=== PATIENT | male | born 1935 | race Caucasian/White ===

== ENCOUNTER 2019-09-22 05:08 | Day surgery (SDC) ==
--- NOTE | 2019-09-15 08:07 | EKG Report ---
Test Performed on : 09/15/2019 08:00:17 AM Test Reason : PAT Blood Pressure : / mmHG Vent. Rate : 067 BPM Atrial Rate : 067 BPM P-R Int : 202 ms QRS Dur : 086 ms QT Int : 384 ms P-R-T Axes : 075 069 052 degrees QTc Int : 405 ms Normal sinus rhythm. Normal ECG No previous ECGs available Confirmed by Eliezer Yi MD ([id number]) on 09/16/2019 12:22:47 PM
[2019-09-15 09:00] LABS: URINE SOURCE CLEAN CATCH
[2019-09-15 09:13] LABS: BASO# 0.07 X1000 (0.0-0.2); BASO% 1.3 % (0.0-0.8); EOS% 7.5 % (0.0-10.0); HEMATOCRIT 49.6 % (42.0-52.0); HEMOGLOBIN 15.6 g/dL (14.0-18.0); LYMPH# 1.72 X1000 (1.2-3.4); LYMPH% 32.3 % (20.5-51.1); MCHC 31.5 g/dL (33-37); MCV 92.2 FL (81-99); MONO# 0.57 X1000 (0.11-0.59); MONO% 10.7 % (1.7-9.3); MPV 11.5 FL (7.4-10.4); NEUT# 2.57 X1000 (1.4-6.5); NEUT% 48.2 % (42.2-75.2); PLT 205 X1000 (130-400); RBC 5.38 XMIL (4.7-6.1); RDW 13.9 % (11.5-14.5); WBC 5.33 X1000 (4.8-10.8)
[2019-09-15 09:20] LABS: INR 3.41; PROTIME 35.5 Seconds (11.0-16.0); PTT 42.2 Seconds (22.3-41.8)
[2019-09-15 09:59] LABS: BILIRUBIN URINE NEGATIVE (NEGATIVE); BLOOD URINE NEGATIVE (NEGATIVE); CALCIUM 9.1 mg/dL (8.8-10.2); COLOR YELLOW; CREATININE 1.3 mg/dL (0.7-1.2); GLUCOSE URINE NEGATIVE (NEGATIVE); KETONE URINE NEGATIVE (NEGATIVE); LEUKOCYTES URINE NEGATIVE (NEGATIVE); NITRITE URINE NEGATIVE (NEGATIVE); PH URINE 5.5; POTASSIUM 4.2 mmol/L (3.5-5.1); PROTEIN URINE NEGATIVE (NEGATIVE); SP GRAVITY URINE 1.016; TURBIDITY URINE CLEAR (CLEAR); UR EPITHELIAL CELLS <10 /HPF (<10); URINE BACTERIA NEGATIVE /HPF; URINE RBC <10 /HPF (<10); URINE WBC <10 /HPF (<10); UROBILINOGEN URINE NORMAL (NORMAL)
[2019-09-15 11:16] LABS: HEMOGLOBIN A1C 6.1 % (4.8-6.0)
[2019-09-22] MEDS ORDERED: KEFZOL 1 GM/D5W 2 GM/100 ML IVPB ONE (05:37)
[2019-09-22] MEDS ORDERED: COLACE ONE (05:37)
[2019-09-22] MEDS ORDERED: CELEBREX ONE (05:37)
[2019-09-22] MEDS ORDERED: REGLAN ONE (05:37)
[2019-09-22] MEDS ORDERED: PEPCID ONE (05:37)
[2019-09-22] MEDS ORDERED: LYRICA ONE (05:37)
[2019-09-22] MEDS ORDERED: LR 1,000 ML ONE (05:37)
[2019-09-22] MEDS ORDERED: MARCAINE 0.25% PF ONE (06:38)
[2019-09-22] MEDS ORDERED: DURAMORPH ONE (06:38)
[2019-09-22] MEDS ORDERED: VANCOMYCIN ONE (06:38)
[2019-09-22] MEDS ORDERED: TORADOL ONE (06:38)
[2019-09-22] MEDS ORDERED: EXPAREL 1.3% ONE (06:39)
[2019-09-22] MEDS ORDERED: CYKLOKAPRON 1,000 MG/NS 2,000 MG/200 ML IVPB ONE (06:39)
[2019-09-22] MEDS ORDERED: NEOSPORIN G.U. IRRIGANT ONE (06:39)
[2019-09-22] MEDS ORDERED: SODIUM CHLORIDE 0.9% ONE (06:39)
[2019-09-22] MEDS ORDERED: DIPRIVAN 1% ONE (06:42)
[2019-09-22] MEDS ORDERED: XYLOCAINE-MPF 2% ONE (06:44)
[2019-09-22] MEDS ORDERED: FENTANYL ONE (07:33)
[2019-09-22] MEDS ORDERED: ZOFRAN ONE (07:48)
[2019-09-22] MEDS ORDERED: DECADRON ONE (07:48)
[2019-09-22 08:04] LABS: URINE SOURCE CATH
[2019-09-22] MEDS ORDERED: OFIRMEV 1000 MG/ISOTONIC SOLN 1,000 MG/100 ML BOTTLE ONE (08:04)
[2019-09-22 08:12] LABS: BILIRUBIN URINE NEGATIVE (NEGATIVE); BLOOD URINE SMALL (NEGATIVE); COLOR YELLOW; GLUCOSE URINE NEGATIVE (NEGATIVE); KETONE URINE NEGATIVE (NEGATIVE); LEUKOCYTES URINE NEGATIVE (NEGATIVE); NITRITE URINE NEGATIVE (NEGATIVE); PH URINE 5.5; PROTEIN URINE NEGATIVE (NEGATIVE); SP GRAVITY URINE 1.017; TURBIDITY URINE CLEAR (CLEAR); UR EPITHELIAL CELLS >10 /HPF (<10); URINE BACTERIA NEGATIVE /HPF; URINE RBC <10 /HPF (<10); URINE WBC <10 /HPF (<10); UROBILINOGEN URINE NORMAL (NORMAL)
[2019-09-22] MEDS ORDERED: DILAUDID ONE (09:00)
[2019-09-22] MEDS ORDERED: NS 1,000 ML ONE (09:58)
--- NOTE | 2019-09-22 10:10 | Diag Imaging Result Doc PS360 ---
KNEE 1-2 VIEWS-LEFT - 09/22/2019 INDICATION: lt tka TECHNIQUE: Two views COMPARISON: None FINDINGS: There has been left total knee arthroplasty. Alignment is anatomic. No hardware fracture or loosening. IMPRESSION: No complication. Electronically signed by Al Recinos 09/22/2019 10:08 AM
[2019-09-22] MEDS ORDERED: ZOFRAN PO PRN (10:15)
[2019-09-22] MEDS ORDERED: DILAUDID IV PRN ×2 (10:15)
[2019-09-22] MEDS ORDERED: MILK OF MAGNESIA PO PRN (10:15)
[2019-09-22] MEDS ORDERED: OXY IR PO PRN ×2 (10:15)
[2019-09-22] MEDS: NS 1,000 ML IV SCH (11:13)
[2019-09-22] MEDS ORDERED: NS 1,000 ML IV ONE (14:14)
[2019-09-22] MEDS ORDERED: PHENERGAN IV PRN (14:15)
[2019-09-22] MEDS ORDERED: SODIUM CHLORIDE 0.9% INJ PRN (14:15)
[2019-09-22] MEDS ORDERED: HYDROCHLOROTHIAZIDE PO ONE (15:21)
[2019-09-22] MEDS: KEFZOL 2 GM/D5W 2 GM/50 ML IVPB IV SCH ×2 (15:58→23:30)
[2019-09-22] MEDS: TYLENOL PO SCH ×2 (18:09→21:47)
--- NOTE | 2019-09-22 19:12 | OPERATIVE NOTE ---
PROCEDURE DATE: 09/22/2019 PREOPERATIVE DIAGNOSIS: Degenerative arthritis of the left knee. POSTOPERATIVE DIAGNOSIS: Degenerative arthritis of the left knee. PROCEDURE: Left total knee arthroplasty of the Attune size 8 posterior stabilized femur size 8 tibial tray, and a 6 mm rotating platform tibial insert, and a 41 mm medialized anatomic patella. SURGEON: Dr. Sam Hale. 1ST EXERCISE EQUIPMENT SPECIALIST: TY Castelan who is necessary for proper positioning, manipulation of the extremity during the case, and retraction as well and improved efficiency. SECOND EXERCISE EQUIPMENT SPECIALIST: Grayson Lilly RN. ANESTHESIA: General. IV FLUIDS: 1200 mL lactated Ringer's. ESTIMATED BLOOD LOSS: 50 mL. TOURNIQUET TIME: 85 minutes at 300 mmHg. COMPLICATIONS: None. INDICATIONS: The patient is an 84-year-old male with chronic history of pain and discomfort in his left knee. He has had worsening pain and discomfort. Pain has progressed to affect his activities of daily living. X-rays revealed degenerative osteoarthritis, and the recommendation to proceed with left total knee arthroplasty was offered. Risks and benefits of surgery were explained, including the risks of anesthesia, , bleeding, infection, failure to relieve pain, postoperative stiffness, nerve injury, blood clots, and other imponderables. All questions were answered. The patient's family wished to proceed with surgery. DETAILS OF OPERATION: The patient was taken to the operating room and was placed supine on the operating table. Once adequate anesthesia was obtained, patient's left lower extremity was subsequently prepped and draped in the usual sterile fashion. An Esmarch was used to exsanguinate the left lower extremity. The tourniquet was inflated to 300 mmHg. A standard anterior incision was made with skin knife. Medial and lateral skin envelopes were developed. Standard medial parapatellar arthrotomy was then performed. Patella fat pad was excised. The retractors were then placed. Approximately 1 cm anterior to the PCL insertion, a starting reamer was passed. Intramedullary guide with a distal femoral cutting block was pinned in position. Distal femoral cut was then performed in a standard fashion. The sizing block was placed and measured to a size 8, a size 8 cutting block was pinned in position. Anterior, posterior, and chamfer cuts were then made. Attention was then turned to the proximal tibia. Using the extramedullary guide, the proximal tibia cutting block was pinned in position. It had good alignment and confirmed with the alignment jossie. The proximal tibia was then resected. Medial and lateral menisci were excised. Curved osteotome was used to remove the posterior osteophytes off the distal femur. A spacer block was then placed, and had good soft tissue balance with flexion and extension. Attention was then turned to the proximal tibia where using the size 8 tibial cutting blocks appeared be the correct size. This was pinned in position. This followed by a central reamer and a fin punch. A box cutting guide was then pinned on the distal femur. A box cut was performed. A trial femoral component was then placed and 2 lug holes were drilled. The trial of tibial insert was then placed and had good soft tissue balancing. The patella was everted and resected in a standard fashion. A size 41 appeared to be the correct size. Corresponding holes were drilled. Trial 41 patella component was then placed. It had good patellofemoral tracking. The trial tibial insert components were then removed. Copious irrigation was performed with pulsatile lavage while vancomycin was mixed and cemented on back table. Sequential cementing was then performed first with the tibial tray, excess cement smoothed with a [place] followed by the femoral component. Excess cement smoothed with a [place] followed by trial tibial insert in full extension. Axial loading was maintained while cement cured. Patella component was then cemented in standard fashion. Patella clamp was placed. While the cement was curing, Exparel was placed in the deep soft tissue as well as the subcutaneous tissue. Cement had cured, peripheral cement was removed with small osteotome. The 6 mm rotating platform tibial insert appeared to be the correct size. The trial insert was removed. Exparel was placed in the posterior capsule. Wounds was copiously irrigated once again. A 6 mm rotating platform tibial insert was then placed. It had good soft tissue balance and good range of motion, and good patellofemoral tracking. A 1/8 Hemovac drain was placed, and was not sewn in. Irrigation was performed once again with pulsatile lavage. Antibiotic pulsatile lavage. The #1 Vicryl was used to repair the arthrotomy followed by 2-0 Vicryl, subcutaneous tissue, and skin javier. Adaptic, sterile 4 x 4's, Webril, cryo unit, and Yair wrap was applied to the right lower extremity. The patient tolerated the procedure well, and was transferred to the recovery room in stable condition. cc: Sam Hale MD MTDD
[2019-09-22] MEDS: PERIDEX MT SCH (21:46)
[2019-09-22] MEDS: ELIQUIS PO SCH (21:47)
[2019-09-22] MEDS: COLACE PO SCH (21:47)
[2019-09-23] MEDS: NS 1,000 ML IV SCH (01:14)
[2019-09-23] MEDS: TYLENOL PO SCH ×2 (05:46→11:28)
[2019-09-23 07:34] LABS: HEMATOCRIT 41.9 % (42.0-52.0); HEMOGLOBIN 13.1 g/dL (14.0-18.0)
[2019-09-23 07:59] LABS: CREATININE 1.4 mg/dL (0.7-1.2); POTASSIUM 4.2 mmol/L (3.5-5.1)
[2019-09-23] MEDS ORDERED: COENZYME Q10 PO SCH (09:00)
[2019-09-23] MEDS ORDERED: CRESTOR PO SCH (09:00)
[2019-09-23] MEDS ORDERED: PRINIVIL PO SCH (09:00)
[2019-09-23] MEDS ORDERED: HYDROCHLOROTHIAZIDE PO SCH (09:00)
[2019-09-23] MEDS: COLACE PO SCH (09:03)
[2019-09-23] MEDS: ELIQUIS PO SCH (09:05)
[2019-09-23] MEDS: PERIDEX MT SCH (09:06)
--- NOTE | 2019-09-23 11:25 | ORTHOPAEDICS PROGRESS NOTE ---
DATE: 09/23/2019 SUBJECTIVE: The patient is a pleasant 84-year-old male who is 1 day status post left total knee arthroplasty. He is currently resting comfortably. OBJECTIVE: On physical exam, patient's left lower extremity wound looks good. There is no signs or symptoms of infection. He is neurovascularly distally. Active dorsiflexion plantar flexion. His labs are pending this morning. IMPRESSION: Postop day #1 status post left total knee arthroplasty. PLAN: At this point, I will plan on discharging home after therapy if he is mobilizing well. Arrange for home physical therapy. cc: Sam Hale MD
[2019-09-23 11:28] VITALS: BP 111/40
== END 2019-09-23 13:51 | disposition home or self-care (01) ==
LOC: OR 05:08 → 4N 05:08 → OR 09-23 13:51
PROVIDERS: ATTEND Orthopaedic Surgery Adult Reconstructive Orthopaedic Surgery